=== PATIENT | female | born 1965 | race Caucasian/White ===

== ENCOUNTER → 2021-02-12 | Outpatient (CLI) | payer BC, OTHER ==
[~2021-02-12] MED LIST: ASPIR 8181 MG PO; FEXOFENADINE H180 MG PO; FLUTICASONE PROPIONA; FUROSEMIDE20 MG PO; HYDROCODON-ACE1 EAC4 PO; LEVOFLOXACIN500 MG PO; LIPITOR TAB 2020 MG PO; LOSARTAN-HCTZ1 EAC2 PO; METOPROLOL SUCC25 MG PO; NITROSTAT0.4 MG SL
== END ==
LOC: HEART 5 14:13
DX: R00.2 Palpitations (principal)

== ENCOUNTER → 2021-04-10 | Outpatient (CLI) | payer BC ==
[2021-04-10 08:42] LABS: HEMOGLOBIN 15.4 gm/dl (12.3-15.3); RED BLOOD COUNT 4.62 M/UL (4.00-5.10); WHITE BLOOD COUNT 7.3 K/UL (4.5-11.0)
[2021-04-10 10:54] LABS: BUN/CREATININE RATIO 14 (0-10)
== END ==
LOC: LAB 08:18
PROVIDERS: Internal Medicine Cardiovascular Disease
DX: I42.2 Other hypertrophic cardiomyopathy (principal); I47.2 Ventricular tachycardia
CPT/HCPCS: 36415; 71046; 80048; 85025

== ENCOUNTER 2021-04-12 07:01 | Outpatient (CLI) | payer BC ==
[~2021-04-12] VITALS: Ht 167.6 cm; Wt 83.0 kg
[~2021-04-12 07:01] MED LIST changes: -FEXOFENADINE H180 MG PO; -FLUTICASONE PROPIONA; -FUROSEMIDE20 MG PO; -HYDROCODON-ACE1 EAC4 PO; -LEVOFLOXACIN500 MG PO; -NITROSTAT0.4 MG SL
[2021-04-12] MEDS ORDERED: FEXOFENADINE H180 MG PO (07:47)
[2021-04-12] MEDS ORDERED: FLUTICASONE PROPIONA (07:48)
[2021-04-12] MEDS ORDERED: FUROSEMIDE20 MG PO (07:48)
[2021-04-12] MEDS ORDERED: NITROSTAT0.4 MG SL (07:49)
[2021-04-12] MEDS ORDERED: HYDROCODON-ACE1 EAC4 PO (09:08)
[2021-04-12] MEDS ORDERED: LEVOFLOXACIN500 MG PO (09:08)
== END 2021-04-13 09:52 | disposition home or self-care (01) ==
LOC: CATH 07:01 → PROG CARE 12:26 → CATH 04-13 09:52
DX: I42.2 Other hypertrophic cardiomyopathy (principal); I47.1 Supraventricular tachycardia; I47.2 Ventricular tachycardia; D25.9 Leiomyoma of uterus, unspecified; F17.210 Nicotine dependence, cigarettes, uncomplicated; I25.10 Atherosclerotic heart disease of native coronary artery without angina pectoris; I11.9 Hypertensive heart disease without heart failure; I34.0 Nonrheumatic mitral (valve) insufficiency; E53.8 Deficiency of other specified B group vitamins; E55.9 Vitamin D deficiency, unspecified; E78.5 Hyperlipidemia, unspecified; Z79.899 Other long term (current) drug therapy; Z95.1 Presence of aortocoronary bypass graft
CPT/HCPCS: 33249; 71045; 93641; 99152; 99153; C1721; C1777; C1898; J1644; J2250; J2270; J3010; J3370; J7040; J7050; J7070

== ENCOUNTER 2022-02-26 18:02 | Emergency (ER) | payer BC ==
[~2022-02-26 18:02] MED LIST changes: +FEXOFENADINE H180 MG PO; +FLUTICASONE PROPIONA; +FUROSEMIDE20 MG PO; +HYDROCODON-ACE1 EAC4 PO; +LEVOFLOXACIN500 MG PO; +NITROSTAT0.4 MG SL
[2022-02-26 20:48] LABS: HEMOGLOBIN 14.4 gm/dl (12.3-15.3); RED BLOOD COUNT 4.43 M/UL (4.00-5.10); WHITE BLOOD COUNT 7.6 K/UL (4.5-11.0)
[2022-02-26 21:04] LABS: BUN/CREATININE RATIO 13 (0-10)
== END 2022-02-26 21:52 | disposition home or self-care (01) ==
LOC: ER1 18:02
PROVIDERS: Student in an Organized Health Care Education/Training Program
DX: I49.3 Ventricular premature depolarization (principal); I42.1 Obstructive hypertrophic cardiomyopathy; I10 Essential (primary) hypertension; Z95.810 Presence of automatic (implantable) cardiac defibrillator; Z88.0 Allergy status to penicillin; Z79.899 Other long term (current) drug therapy
CPT/HCPCS: 71045; 80053; 82550; 82553; 84484; 85025; 93005; 99285

== ENCOUNTER → 2022-03-25 | Outpatient (CLI) | payer BC | LOC: HEART 5 08:00 | DX: I25.119 Atherosclerotic heart disease of native coronary artery with unspecified angina pectoris (principal); I11.9 Hypertensive heart disease without heart failure; R01.1 Cardiac murmur, unspecified; I47.2 Ventricular tachycardia; Z95.0 Presence of cardiac pacemaker | CPT/HCPCS: 78452; 93306; A9502; J2785 ==

== ENCOUNTER → 2022-04-08 | Outpatient (CLI) | payer BC ==
[~2022-04-08] MED LIST changes: +ATORVASTATIN CA40 MG PO; +CLOPIDOGREL75 MG PO; +ESCITALOPRAM OX10 MG PO; +HYDROCHLOROTHIA25 MG PO; +ISORDIL TAB 3030 MG PO; +LOPRESSOR100 MG PO; +LOSARTAN POTASS50 MG PO; +METOPROLOL SUC100 MG PO; -METOPROLOL SUCC25 MG PO
[2022-04-08 08:30] LABS: HEMOGLOBIN 14.3 gm/dl (12.3-15.3); RED BLOOD COUNT 4.34 M/UL (4.00-5.10); WHITE BLOOD COUNT 7.1 K/UL (4.5-11.0)
[2022-04-08 08:56] LABS: BUN/CREATININE RATIO 16 (0-10)
== END ==
LOC: LAB 08:04
PROVIDERS: Internal Medicine Cardiovascular Disease
DX: I25.119 Atherosclerotic heart disease of native coronary artery with unspecified angina pectoris (principal); R94.39 Abnormal result of other cardiovascular function study
CPT/HCPCS: 36415; 80048; 85025

== ENCOUNTER 2022-04-10 06:51 | Outpatient (CLI) | payer BC ==
[~2022-04-10] VITALS: Ht 167.6 cm; Wt 73.9 kg
[~2022-04-10 06:51] MED LIST changes: -ATORVASTATIN CA40 MG PO; -CLOPIDOGREL75 MG PO; -ESCITALOPRAM OX10 MG PO; -HYDROCHLOROTHIA25 MG PO; -ISORDIL TAB 3030 MG PO; -LOSARTAN POTASS50 MG PO; -METOPROLOL SUC100 MG PO
[2022-04-10] MEDS ORDERED: ESCITALOPRAM OX10 MG PO (07:26)
[2022-04-10] MEDS ORDERED: HYDROCHLOROTHIA25 MG PO (07:27)
[2022-04-10] MEDS ORDERED: ISORDIL TAB 3030 MG PO (07:28)
[2022-04-10] MEDS ORDERED: LOSARTAN POTASS50 MG PO (07:28)
[2022-04-11] MEDS ORDERED: METOPROLOL SUC100 MG PO (10:44)
[2022-04-11] MEDS ORDERED: CLOPIDOGREL75 MG PO (10:44)
[2022-04-11] MEDS ORDERED: ATORVASTATIN CA40 MG PO (10:44)
== END 2022-04-11 11:09 | disposition home or self-care (01) ==
LOC: CATH 06:51 → PROG CARE 11:15 → CATH 04-11 11:09
DX: I25.119 Atherosclerotic heart disease of native coronary artery with unspecified angina pectoris (principal); I42.2 Other hypertrophic cardiomyopathy; I47.2 Ventricular tachycardia; Z95.1 Presence of aortocoronary bypass graft; Z88.0 Allergy status to penicillin; Z88.1 Allergy status to other antibiotic agents; Z91.040 Latex allergy status; Z79.82 Long term (current) use of aspirin; Z79.899 Other long term (current) drug therapy
CPT/HCPCS: 85347; 99152; 99153; C1725; C1769; C1874; C1887; J0153; J1644; J2250; J2270; J3010; J7040; Q9967